=== PATIENT | male | born 1945 | race Caucasian/White ===

== ENCOUNTER 2017-07-17 08:37 | Day surgery (SDC) | payer OTHER, MEDICARE ==
[~2017-07-17 08:37] MED LIST: ANUSOL-HC2.5%; ASPIRIN 81MG TA81 MG PO; ASPIRIN325 M1 PO; CHOLEST OFF OR; CHOLESTEROL MED; FISH OIL CONC1000 MG PO; KEFLEX 500MG.500 MG PO; METOPROLOL25 MG PO; MULTI VITAMINS1 TAB PO; NIASPAN500 MG PO; RAMIPRIL2.5 MG PO; RITE AID KRILL500 MG PO; SIMVASTATIN20 MG PO; VICODIN 5/500 T1 TAB PO
[2017-07-17 11:26] VITALS: BP 121/78
== END 2017-07-17 11:26 | disposition home or self-care (01) ==
LOC: SDC 08:37
PROVIDERS: Ophthalmology
PROC: 08RJ3JZ Replacement of Right Lens with Synthetic Substitute, Percutaneous Approach (ICD-10-PCS; principal; 2017-07-17 11:30)
DX: H26.9 Unspecified cataract (principal); H53.8 Other visual disturbances; E11.9 Type 2 diabetes mellitus without complications
CPT/HCPCS: V2632

== ENCOUNTER 2017-07-31 06:24 | Day surgery (SDC) | payer OTHER, MEDICARE ==
[2017-07-31 13:45] VITALS: BP 106/60
== END 2017-07-31 10:25 | disposition home or self-care (01) ==
LOC: SDC 06:24
PROVIDERS: Ophthalmology
PROC: 08RK3JZ Replacement of Left Lens with Synthetic Substitute, Percutaneous Approach (ICD-10-PCS; principal; 2017-07-31 08:30)
DX: H26.9 Unspecified cataract (principal); H53.8 Other visual disturbances; E11.9 Type 2 diabetes mellitus without complications; Z83.511 Family history of glaucoma
CPT/HCPCS: V2632